=== PATIENT | male | born 1950 | race Caucasian/White ===

== ENCOUNTER → 2017-02-05 08:56 | Outpatient (CLI) | payer BC | END | disposition home or self-care (01) | LOC: D.MRI 01-25 13:30 | DX: M54.12 Radiculopathy, cervical region (principal); M54.14 Radiculopathy, thoracic region ==

== ENCOUNTER → 2018-08-02 08:08 | Outpatient (CLI) | payer MEDICARE, OTHER | END | disposition home or self-care (01) | LOC: D.RAD 08:08 | PROVIDERS: ATTEND Orthopaedic Surgery | DX: M75.102 Unspecified rotator cuff tear or rupture of left shoulder, not specified as traumatic (principal) ==